=== PATIENT | female | born 1930 | race Caucasian/White ===

== ENCOUNTER 2016-12-17 09:37 | Emergency (ER) | payer MEDICARE, OTHER ==
[~2016-12-17 09:37] MED LIST: ASPIRIN EC325 MG PO; BENTYL10 MG PO; CALCIUM 600 +1 EAC3 PO; COREG6.25 MG PO; COUMADIN5 MG PO; ENSURE LIQUID237 ML PO; ISOSORBIDE MONO30 MG PO; NITROSTAT0.4 MG SL; RESTASIS1 EACH OU; SINGULAIR10 MG PO; SYMBICORT 16010.2 GM IH; SYNTHROID75 MCG PO; ZANTAC150 MG PO; ZYRTEC10 MG PO
== END 2016-12-17 16:25 | disposition short-term general hospital (02) ==
LOC: ER 09:37
DX: R55 Syncope and collapse (principal); G45.9 Transient cerebral ischemic attack, unspecified; J44.9 Chronic obstructive pulmonary disease, unspecified; I48.91 Unspecified atrial fibrillation; I11.0 Hypertensive heart disease with heart failure; I50.9 Heart failure, unspecified; Z79.82 Long term (current) use of aspirin; Z79.899 Other long term (current) drug therapy; Z79.01 Long term (current) use of anticoagulants; Z88.1 Allergy status to other antibiotic agents; Z91.041 Radiographic dye allergy status; Z88.5 Allergy status to narcotic agent; Z88.6 Allergy status to analgesic agent
CPT/HCPCS: 36415